=== PATIENT | male | born 1980 | race Caucasian/White ===

== ENCOUNTER 2025-07-17 10:30 | Emergency (ER) | payer BC | END 2025-07-17 12:20 | disposition home or self-care (01) | LOC: CSHERS 10:30 | DX: S61.011A Laceration without foreign body of right thumb without damage to nail, initial encounter (principal); Z23 Encounter for immunization; W26.0XXA Contact with knife, initial encounter; Y93.89 Activity, other specified | CPT/HCPCS: 12001; 90471; 90715 ==